=== PATIENT | female | born 1995 | race Caucasian/White ===

== ENCOUNTER 2018-04-07 07:21 | Emergency (ER) | payer OTHER ==
[2018-04-07 07:30] VITALS: BMI 38.7
[2018-04-07 07:31] VITALS: TEMP 97.8
--- NOTE | 2018-04-07 07:42 | ED PDOC ---
HPI: Chest Pain Time Seen by Provider: 04/07/18 07:32 Chief Complaint (Nursing): Chest Pain History Per: Patient Onset/Duration Of Symptoms: Days (1) Current Symptoms Are (Timing): Better Severity: Mild Quality: Sharp Exacerbating Factors: Deep Breathing Additional Complaint(s): Right sided chest pain since last night. Worse on inspiration. Denies fever, cough or SOB. Past Medical History Vital Signs: Last Vital Signs Temp 97.8 F 04/07/18 07:29 Pulse 87 04/07/18 07:29 Resp 17 04/07/18 07:29 BP 119/71 04/07/18 07:29 Pulse Ox 99 04/07/18 07:42 - Medical History PMH: No Chronic Diseases - Family History Family History: States: Unknown Family Hx - Home Medications Home Medications: Ambulatory Orders Medication Instructions Recorded Naproxen [Naprosyn] 500 mg PO Q12H #20 tab 04/07/18 metroNIDAZOLE [Flagyl] 1 tab PO BID 04/07/18 - Allergies Allergies/Adverse Reactions: Allergies Allergy/AdvReac Type Severity Reaction Status Date / Time No Known Allergies Allergy Verified 04/07/18 07:37 Review of Systems Constitutional: Negative for: Fever Cardiovascular: Positive for: Chest Pain Respiratory: Negative for: Cough, Shortness of Breath Musculoskeletal: Negative for: Back Pain Physical Exam - Physical Exam Appears: Positive for: Non-toxic, No Acute Distress Skin: Positive for: Normal Color, Warm, DRY Cardiovascular/Chest: Positive for: Regular Rate, Rhythm, Chest Non Tender Respiratory: Positive for: CNT, Normal Breath Sounds Gastrointestinal/Abdominal: Negative for: Tenderness - ECG O2 Sat by Pulse Oximetry: 99 Disposition - Clinical Impression Clinical Impression: Pleuritic chest pain - Patient ED Disposition Is Patient to be Admitted: No Counseled Patient/Family Regarding: Studies Performed, Diagnosis, Need For Followup, Rx Given - Disposition Referrals: [facility] [Outside] Disposition: Routine/Home Disposition Time: 08:41 Condition: FAIR Prescriptions: Naproxen [Naprosyn] 500 mg PO Q12H #20 tab Instructions: Pleuritic Chest Pain Forms: [employer] ([place])
[2018-04-07 08:50] VITALS: BP 120/74; PULSE 82; RESP 19; O2SAT 100
--- NOTE | 2018-04-07 10:28 | RAD ---
Date of service: 04/07/2018 HISTORY: Right sided chest pain COMPARISON: No prior. TECHNIQUE: Chest PA and lateral FINDINGS: LUNGS: No active pulmonary disease. PLEURA: No significant pleural effusion identified. No pneumothorax apparent. CARDIOVASCULAR: Normal. OSSEOUS STRUCTURES: No significant abnormalities. VISUALIZED UPPER ABDOMEN: Normal. OTHER FINDINGS: None. IMPRESSION: No active disease.
== END 2018-04-07 08:53 | disposition home or self-care (01) ==
LOC: H.ER 07:21
DX: R07.1 Chest pain on breathing (principal)